=== PATIENT | female | born 1975 | race Caucasian/White ===

== ENCOUNTER 2016-05-25 18:11 | Inpatient (IN) | payer OTHER ==
[~2016-05-25 18:11] MED LIST: COLACE 100MG C100 MG PO; IBUPROFEN600 MG PO; MIRALAX PACK 171 PKT PO; NORCO 10-325 T1 EACH PO; TYLENOL W/CODEIN1 E1 PO
[2016-05-25 19:09] LABS: RED BLOOD COUNT 4.31 M/UL (4.00-5.10); WHITE BLOOD COUNT 10.4 K/UL (4.5-11.0)
[2016-05-25] MEDS ORDERED: ELIQUIS 5 MG TAB5 MG PO (19:18)
[2016-05-25] MEDS ORDERED: PREDNISONE 1 MG1 MG PO (19:19)
[2016-05-26] MEDS ORDERED: MIRALAX17 GM PO (17:17)
[2016-05-26] MEDS ORDERED: MACROBID 100 M100 MG PO (17:18)
[2016-05-26] MEDS ORDERED: ELIQUIS5 MG PO (17:18)
[2016-05-26] MEDS ORDERED: LORTAB 5-325 M1 EACH PO (17:36)
== END 2016-05-26 18:30 | disposition home or self-care (01) | DRG 690 ==
LOC: M/S 18:11
PROVIDERS: ADMIT Obstetrics & Gynecology
DX: N39.0 Urinary tract infection, site not specified (principal); R06.02 Shortness of breath; K59.00 Constipation, unspecified; G43.909 Migraine, unspecified, not intractable, without status migrainosus; F41.9 Anxiety disorder, unspecified; E66.3 Overweight; Z87.440 Personal history of urinary (tract) infections; Z87.442 Personal history of urinary calculi; Z86.711 Personal history of pulmonary embolism; Z68.32 Body mass index [BMI] 32.0-32.9, adult; Z79.01 Long term (current) use of anticoagulants; Z79.899 Other long term (current) drug therapy; Z88.5 Allergy status to narcotic agent; Z90.710 Acquired absence of both cervix and uterus; Z90.49 Acquired absence of other specified parts of digestive tract; Z98.890 Other specified postprocedural states; Z82.5 Family history of asthma and other chronic lower respiratory diseases; Z82.49 Family history of ischemic heart disease and other diseases of the circulatory system; Z80.8 Family history of malignant neoplasm of other organs or systems; Z83.3 Family history of diabetes mellitus
CPT/HCPCS: 36415; 36600; 82803; 85027; 85610; 85730; J7050; Q9963

== ENCOUNTER → 2016-08-25 | Outpatient (CLI) | payer OTHER ==
[~2016-08-25] MED LIST changes: +ELIQUIS 5 MG TAB5 MG PO; +ELIQUIS5 MG PO; +LORTAB 5-325 M1 EACH PO; +MACROBID 100 M100 MG PO; +MIRALAX17 GM PO; +PREDNISONE 1 MG1 MG PO
== END ==
LOC: HEART 5 11:28
DX: R05 Cough (principal)
CPT/HCPCS: 71020-FX